=== PATIENT | female | born 1960 | race Caucasian/White ===

== ENCOUNTER 2018-04-28 11:01 | Emergency (ER) | payer BC ==
[~2018-04-28] VITALS: Ht 167.6 cm; Wt 80.7 kg
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
--- NOTE | 2018-04-28 11:58 | NUR ---
PATIENT WENT TO X-RAY DEPT FOR CT SCAN
[2018-04-28] MEDS ORDERED: IBUPROFEN 600 MG TABLET PO ONE ×2 (13:24→13:30)
[2018-04-28 13:31] VITALS: BP 145/85
--- NOTE | 2018-04-28 13:35 | NUR ---
Patient discharged to home in stable condition. Written and verbal after care instructions given. Patient verbalizes understanding of instruction.
== END 2018-04-28 13:35 | disposition home or self-care (01) ==
LOC: ER 11:04
DX: M54.2 Cervicalgia (principal); M54.5 Low back pain; M43.10 Spondylolisthesis, site unspecified; Z98.890 Other specified postprocedural states; V49.59XA Passenger injured in collision with other motor vehicles in traffic accident, initial encounter; Y93.89 Activity, other specified; Y92.89 Other specified places as the place of occurrence of the external cause; Y99.8 Other external cause status
CPT/HCPCS: 72125-TC; 72131-TC